=== PATIENT | female | born 1950 | race Caucasian/White ===

== ENCOUNTER 2024-03-05 12:18 | Outpatient (REF) | payer MEDICARE, OTHER, SELFPAY ==
[2024-03-05 13:44] VITALS: BP 184/84; PULSE 100; RESP 18; TEMP 36.3; O2SAT 96; BMI 37.1
== END 2024-03-05 12:19 | disposition home or self-care (01) ==
LOC: HO.MS 12:18
PROVIDERS: PCP Pediatrics; Visit Provider Ophthalmology
PROC: (CPT 66821; principal; 2024-03-05 15:00)
DX: H26.492 Other secondary cataract, left eye (principal)
CPT/HCPCS: 66821